=== PATIENT | female | born 1990 | race Caucasian/White ===

== ENCOUNTER 2016-03-07 22:20 | Emergency (ER) | payer OTHER ==
[~2016-03-07] VITALS: Ht 170.2 cm; Wt 98.9 kg
--- NOTE | 2016-03-07 22:20 | NUR ---
PT BIB [facility], PREBOOK. TAKEN TO OF
[2016-03-07 22:21] VITALS: BP 147/69
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
--- NOTE | 2016-03-07 22:37 | NUR ---
Dr. Orellana evaluating patient
[2016-03-07 22:47] VITALS: BP 147/69
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
== END 2016-03-07 22:47 ==
LOC: MED 22:20
DX: Z02.89 Encounter for other administrative examinations (principal); D64.9 Anemia, unspecified